=== PATIENT | female | born 1935 | race Caucasian/White ===

== ENCOUNTER 2017-06-13 07:23 | Day surgery (SDC) | payer OTHER, BC ==
[2017-06-13 08:26] VITALS: BMI 25.0
[2017-06-13 09:26] VITALS: TEMP 97.5
[2017-06-13 13:42] VITALS: BP 166/65; PULSE 60
--- NOTE | 2017-06-14 13:24 | PATH ---
Surgical Pathology Report Patient Name: PELON SUBRAMAN[facility]. Rec. #: [id number] /Age/Gender: 1935 (Age: 82) / F Account: [id number] Location: U-ENDOSCOPY Taken: 06/13/2017 Received: 06/13/2017 Reported: 06/14/2017 Physicians: Tashi Pimentel M.D. Specimen(s) Received A: BX SIGMOID POLYP B: BX CECAL POLYP C: BX DESCENDING COLON POLYP; Clinical History Preoperative diagnosis: Adenoma surveillance Postoperative diagnosis: Polyps Final Diagnosis A. COLON, SIGMOID, FORCEP POLYPECTOMY: HYPERPLASTIC POLYP. B. COLON, CECUM, FORCEP POLYPECTOMY: TUBULAR ADENOMA. C. COLON, DESCENDING, FORCEP POLYPECTOMY: TUBULAR ADENOMA. Comment: Recommend correlation with clinical findings and follow up as clinically indicated. Electronically Signed Dean Winters M.D. Gross Description A. Received in formalin, labeled "biopsy sigmoid polyp" are 2 swann, irregular portions of soft tissue averaging 0.2 cm. in greatest dimension. The specimens are submitted in toto in one cassette. B. Received in formalin, labeled "biopsy cecal polyp" are 3 swann, irregular portions of soft tissue ranging from 0.1-0.4 cm. in greatest dimension. The specimens are submitted in toto in one cassette. C. Received in formalin, labeled "biopsy descending colon polyp" are 2 swann, irregular portions of soft tissue averaging 0.3 cm. in greatest dimension. The specimens are submitted in toto in one cassette. 06/13/201706/13/2017
== END 2017-06-13 10:25 | disposition home or self-care (01) ==
LOC: JASU-ENDO 07:23
PROVIDERS: ATTEND Internal Medicine Gastroenterology
PROC: 0DBN8ZX Excision of Sigmoid Colon, Via Natural or Artificial Opening Endoscopic, Diagnostic (ICD-10-PCS; 2017-06-13)
PROC: 0DBM8ZX Excision of Descending Colon, Via Natural or Artificial Opening Endoscopic, Diagnostic (ICD-10-PCS; 2017-06-13)
PROC: 0DBH8ZX Excision of Cecum, Via Natural or Artificial Opening Endoscopic, Diagnostic (ICD-10-PCS; principal; 2017-06-13 08:30)
DX: Z86.010 Personal history of colon polyps (principal); D12.0 Benign neoplasm of cecum; D12.2 Benign neoplasm of ascending colon; D12.4 Benign neoplasm of descending colon; D12.5 Benign neoplasm of sigmoid colon; K57.30 Diverticulosis of large intestine without perforation or abscess without bleeding; K64.8 Other hemorrhoids
CPT/HCPCS: 88305-TC